=== PATIENT | male | born 1940 | race Caucasian/White ===

== ENCOUNTER → 2018-07-19 | Outpatient (CLI) | payer MEDICARE, OTHER ==
[~2018-07-19] MED LIST: ALLOPURINOL 10100 M1 PO; ASPIR 8181 MG PO; CELEXA20 MG PO; IBUPROFEN 400400 M2 PO; KEPPRA 500 MG500 M2 PO; LASIX 40 MG TAB40 M2 PO; LIPITOR10 MG PO; LISINOPRIL2.5 MG PO; LISINOPRIL20 MG PO; LOTRISONE CREAM15 GM TOP; METFORMIN HCL500 MG PO; NORVASC10 MG PO; NORVASC5 MG PO; PROAIR HFA8.5 GM INH; SERTRALINE HCL50 MG PO; TRUSOPT5 ML OPHTHALMIC; XALATAN2.5 ML OPHTHALMIC
--- NOTE | 2018-07-19 17:19 | 2DMMODE ---
[place] [address] 2 D/M-MODE ECHOCARDIOGRAM Name: KATELYN HERNANDEZ Room: [facility]#: [id number] Admission: 07/19/18 Attend Phys: Jeff Mckeon MD Discharge: Date of : 42 Date of Service: 07/19/18 1719 Report #: [id number] THIS REPORT FOR: //name// APPROVED REPORT Study performed: 07/19/2018 08:03:32 EXAM: Comprehensive 2D, Doppler, and color-flow Echocardiogram Patient Location: Out-Patient Status: routine BSA: 2.09 HR: 78 bpm BP: 92/69 mmHg Other Information Study Quality: Good Indications Murmur Aortic valve replacement 2D Dimensions IVSd: 13.62 (7-11mm) LVOT Diam: 20.36 (18-24mm) LVDd: 48.24 mm PWd: 13.69 (7-11mm) Ascending Ao: 34.48 (22-36mm) LVDs: 34.39 (25-40mm) Aortic Root: 23.25 mm Volumes Left Atrial Volume (Systole) LA ESV Index: 30.60 mL/m2 Aortic Valve AoV Peak Hilario.: 1.95 m/s AO Peak Gr.: 15.17 mmHg LVOT Max P.81 mmHg AO Mean Gr.: 8.51 mmHg LVOT Mean P.05 mmHg LVOT Max V: 1.10 m/s AO V2 VTI: 37.71 cm LVOT Mean V: 0.64 m/s MARYJANE (VTI): 1.89 cm2 LVOT V1 VTI: 21.84 cm Mitral Valve MV Peak Gr.: 13.09 mmHg MV Mean Gr.: 6.39 mmHg E/A Ratio: 1.13 MV Decel. Time: 310.79 [place] [address] 2 D/M-MODE ECHOCARDIOGRAM Name: KATELYN HERNANDEZ Room: [facility]#: [id number] Admission: 07/19/18 Attend Phys: Jeff Mckeon MD Discharge: Date of : 42 Date of Service: 07/19/18 1719 Report #: [id number] MV E Max Hilario.: 1.33 m/s MV PHT: 90.13 ms MVA (PHT): 2.44 cm2 TDI E/Lateral E': 26.60 E/Medial E': 33.25 Medial E' Hilario.: 0.04 m/s Lateral E' Hilario.: 0.05 m/s Pulmonary Valve PV Peak Hilario.: 1.08 m/s PV Peak Gr.: 4.66 mmHg Tricuspid Valve RAP Estimate: 5.00 mmHg TR Peak Gr.: 36.95 mmHg RVSP: 41.95 mmHg PA Pressure: 41.95 mmHg Left Ventricle The left ventricle is normal size. There is normal LV segmental wall motion. Mild concentric left ventricular hypertrophy. Left ventricular systolic function is normal. The left ventricular ejection fraction is within the normal range. LVEF is 50-55%. Grade I - abnormal relaxation pattern. Right Ventricle The right ventricle is normal size. The right ventricular systolic function is normal. Pacemaker lead is present in the right ventricle. Atria The left atrium size is normal. Pacemaker lead is present in the right atrium. Aortic Valve Mild aortic valve sclerosis. Bioprosthetic aortic valve is present. No aortic regurgitation is present. No hemodynamically significant valvular aortic stenosis. Mitral Valve Severe mitral annular calcification. Mitral valve leaflets are thickened. Mild mitral regurgitation. No significant mitral valve stenosis. Tricuspid Valve The tricuspid valve is normal in structure. Mild to moderate [place]icus[place] [address] 2 D/M-MODE ECHOCARDIOGRAM Name: KATELYN HERNANDEZ Room: [facility]#: [id number] Admission: 07/19/18 Attend Phys: Jeff Mckeon MD Discharge: Date of : 42 Date of Service: 07/19/18 1719 Report #: [id number] Pulmonic Valve The pulmonary valve is normal in structure. There is no pulmonic valvular regurgitation. Great Vessels The aortic root is normal in size. IVC is normal in size and collapses >50% with inspiration. Pericardium There is no pericardial effusion. <Conclusion> The left ventricle is normal size. Mild concentric left ventricular hypertrophy. Left ventricular systolic function is normal. The left ventricular ejection fraction is within the normal range. LVEF is 50-55%. Grade I - abnormal relaxation pattern. The right ventricle is normal size. The left atrium size is normal. Mild aortic valve sclerosis. No aortic regurgitation is present. No hemodynamically significant valvular aortic stenosis. Severe mitral annular calcification. Mitral valve leaflets are thickened. Mild mitral regurgitation. No significant mitral valve stenosis. The tricuspid valve is normal in structure. Mild to moderate tricuspid regurgitation. IVC is normal in size and collapses >50% with inspiration. There is no pericardial effusion. There is normal LV segmental wall motion. Bioprosthetic aortic valve is present. <ELECTRONICALLY SIGNED> By: Mati James MD, FACC 07/19/181718 18 18 Mati James MD, FACC /INF
== END ==
LOC: M.CRD 07:31
DX: I08.3 Combined rheumatic disorders of mitral, aortic and tricuspid valves (principal); Z95.0 Presence of cardiac pacemaker

== ENCOUNTER 2019-07-21 09:16 | Emergency (ER) | payer OTHER, MEDICARE ==
[~2019-07-21] VITALS: Ht 170.2 cm; Wt 99.8 kg
[2019-07-21] MEDS ORDERED: DILTIAZEM ER180 M2 PO (09:42)
[2019-07-21] MEDS ORDERED: DORZOLAMIDE 2%10 ML (09:43)
[2019-07-21] MEDS ORDERED: ZETIA10 MG PO (09:43)
[2019-07-21 11:46] VITALS: BP 186/97
== END 2019-07-21 11:52 | disposition home or self-care (01) ==
LOC: M.ERS 09:16
DX: S16.1XXA Strain of muscle, fascia and tendon at neck level, initial encounter (principal); F32.9 Major depressive disorder, single episode, unspecified; Z90.49 Acquired absence of other specified parts of digestive tract; W18.39XA Other fall on same level, initial encounter; Y93.89 Activity, other specified; Y92.89 Other specified places as the place of occurrence of the external cause; Y99.8 Other external cause status

== ENCOUNTER 2020-05-24 14:32 | Inpatient (IN) | payer MEDICARE, OTHER ==
[~2020-05-24] VITALS: Ht 172.7 cm; Wt 98.0 kg
[~2020-05-24 14:32] MED LIST changes: +DILTIAZEM ER180 M2 PO; +DORZOLAMIDE 2%10 ML; +ZETIA10 MG PO
[2020-05-24 14:33] VITALS: BP 162/69
[2020-05-24 15:17] LABS: URINE BILIRUBIN NEGATIVE (Negative); URINE BLOOD NEGATIVE (Negative); URINE CLARITY CLEAR; URINE COLOR YELLOW; URINE GLUCOSE-RANDOM NEGATIVE (Negative); URINE KETONES NEGATIVE (Negative); URINE LEUKOCYTES-REFLEX NEGATIVE (Negative); URINE NITRITE-REFLEX NEGATIVE (Negative); URINE PROTEIN 2+ (Negative); URINE SPECIFIC GRAVITY 1.025 (1.005-1.030); URINE UROBILINOGEN 0.2 E.U./dl (0.2-1.0)
[2020-05-24 15:23] LABS: SQUAMOUS NONE SEEN /LPF (0-3)
[2020-05-24 15:24] LABS: BACTERIA-REFLEX 1-9 Few /HPF (None Seen); CASTS None Seen /LPF (None Seen); CRYSTALS None Seen /LPF (None Seen); MUCUS None Seen strn/LPF (None Seen); URINE RBC None Seen /HPF (0-2); URINE WBC-REFLEX None Seen /HPF (0-5)
[2020-05-24 15:31] LABS: ABSOLUTE LYMPHOCYTES 0.5 thou/uL (0.8-5.3); ABSOLUTE MONOCYTES 0.5 thou/uL (0.0-1.2); ABSOLUTE NEUTROPHILS 4.9 thou/uL (1.6-8.1); BASOPHILS 0.5 %; EOSINOPHILS 0.5 %; HEMATOCRIT 40.6 % (42.0-52.0); HEMOGLOBIN 13.5 gm/dL (14.0-18.0); LYMPHOCYTES 8.8 %; MCH 30.2 pg (26.0-34.0); MCHC 33.2 g/dL (28.0-37.0); MCV 90.7 fL (80.0-100.0); MONOCYTES 8.2 %; MPV 7.1 fl. (7.2-11.1); NUCLEATED RBCS 0 /100WBC; PLATELET COUNT* 214 thou/uL (150-400); RBC 4.47 mil/uL (4.50-6.00); RDW-CV 12.8 % (10.5-14.5); WBC 5.9 thou/uL (4.0-11.0)
[2020-05-24 15:35] LABS: INFLUENZA A ANTIGEN Negative (Negative); INFLUENZA B ANTIGEN Negative (Negative)
[2020-05-24 15:50] LABS: CALCIUM 8.5 mg/dL (8.5-10.1); CREATININE 1.5 mg/dL (0.6-1.3); POTASSIUM 4.2 mmol/L (3.5-5.1)
[2020-05-24 15:56] LABS: ALBUMIN 3.4 g/dL (3.4-5.0); TOTAL BILIRUBIN 0.4 mg/dL (<0.1-1.0); TOTAL PROTEIN 7.6 g/dL (6.4-8.2)
--- NOTE | 2020-05-24 16:47 | EKG ---
[place] [address] ELECTROCARDIOGRAM REPORT Name: KATELYN HERNANDEZ Room: [facility]#: [id number] Admission: 05/24/20 Attend Phys: Discharge: Date of : 42 Date of Service: 05/24/20 1503 Report #: [id number] THIS REPORT FOR: //name// [facility] ED Test Date: 2020-05-24 Test Time: 15:03:46 Pat Name: KATELYN HERNANDEZ Department: Room: Gender: Copy Manager: [facility] : 1940 Requested By: Susana Kauffman Order Number: [id number] Wood MD: Mati James Measurements Intervals [place] Rate: 104 P: 106 DE: 150 QRS: -77 QRSD: 166 T: 85 QT: 392 QTc: 516 Interpretive Statements Ventricular-paced complexes No further analysis attempted due to paced rhythm Baseline wander in lead(s) II,III,aVF Compared to ECG 07/28/2017 11:26:04 Atrial-sensed ventricular-paced complex(es persist Electronically Signed On 05-24-2020 16:47:23 CDT by Mati James [email or web address] <ELECTRONICALLY SIGNED> By: Mati James MD, [facility] 05/24/20 1647 1503 1503 Mati James MD, [facility] /EPI
[2020-05-24 20:49] VITALS: BP 181/78
[2020-05-24 21:30] VITALS: BP 176/80
[2020-05-25] VITALS: BP 157/84
[2020-05-25 04:57] VITALS: BP 148/60
[2020-05-25 09:45] VITALS: BP 156/55
[2020-05-25] MEDS ORDERED: GABAPENTIN100 MG PO (11:17)
[2020-05-25] MEDS ORDERED: KEPPRA XR750 MG PO (11:17)
[2020-05-25 13:07] VITALS: BP 148/59
[2020-05-25 13:34] LABS: CALCIUM 8.8 mg/dL (8.5-10.1); CREATININE 1.4 mg/dL (0.6-1.3); POTASSIUM 4.3 mmol/L (3.5-5.1)
[2020-05-25 17:02] VITALS: BP 138/35
[2020-05-25 20:00] VITALS: BP 139/59
[2020-05-26] VITALS (8 sets, daily range): BP systolic 135–194; BP diastolic 48–89
[2020-05-26 02:50] LABS: URINE BILIRUBIN NEGATIVE (Negative); URINE BLOOD 3+ (Negative); URINE CLARITY CLEAR; URINE COLOR YELLOW; URINE GLUCOSE-RANDOM NEGATIVE (Negative); URINE KETONES NEGATIVE (Negative); URINE LEUKOCYTES-REFLEX NEGATIVE (Negative); URINE NITRITE-REFLEX NEGATIVE (Negative); URINE PROTEIN 2+ (Negative); URINE SPECIFIC GRAVITY 1.025 (1.005-1.030); URINE UROBILINOGEN 0.2 E.U./dl (0.2-1.0)
[2020-05-26 02:58] LABS: HEMATOCRIT 40.2 % (42.0-52.0); HEMOGLOBIN 13.3 gm/dL (14.0-18.0); MCH 29.7 pg (26.0-34.0); MCHC 33.1 g/dL (28.0-37.0); MCV 89.5 fL (80.0-100.0); MPV 7.6 fl. (7.2-11.1); RBC 4.49 mil/uL (4.50-6.00); RDW-CV 12.6 % (10.5-14.5); WBC 15.3 thou/uL (4.0-11.0)
[2020-05-26 03:11] LABS: ALBUMIN 3.1 g/dL (3.4-5.0); CALCIUM 8.2 mg/dL (8.5-10.1); CREATININE 1.6 mg/dL (0.6-1.3); MAGNESIUM 1.4 mg/dL (1.8-2.4); POTASSIUM 3.9 mmol/L (3.5-5.1); TOTAL BILIRUBIN 0.5 mg/dL (<0.1-1.0); TOTAL PROTEIN 7.4 g/dL (6.4-8.2)
[2020-05-26 04:43] LABS: CASTS None Seen /LPF (None Seen); MUCUS 0-3 Light strn/LPF (None Seen); SQUAMOUS NONE SEEN /LPF (0-3); URINE RBC >20 Many /HPF (0-2); URINE WBC-REFLEX 0-5 Rare /HPF (0-5)
[2020-05-26 04:44] LABS: AMORPHOUS URATES Moderate /LPF (None Seen); BACTERIA-REFLEX 1-9 Few /HPF (None Seen)
[2020-05-27] VITALS: BP 167/83
[2020-05-27 04:34] LABS: HEMOGLOBIN 13.9 gm/dL (14.0-18.0); MCH 29.9 pg (26.0-34.0); MCV 90.5 fL (80.0-100.0); MPV 7.7 fl. (7.2-11.1); RBC 4.64 mil/uL (4.50-6.00); RDW-CV 12.7 % (10.5-14.5); WBC 13.1 thou/uL (4.0-11.0)
[2020-05-27 05:06] LABS: ALBUMIN 2.8 g/dL (3.4-5.0); CALCIUM 8.4 mg/dL (8.5-10.1); CREATININE 1.6 mg/dL (0.6-1.3); MAGNESIUM 1.7 mg/dL (1.8-2.4); POTASSIUM 3.9 mmol/L (3.5-5.1); TOTAL BILIRUBIN 0.4 mg/dL (<0.1-1.0); TOTAL PROTEIN 7.3 g/dL (6.4-8.2)
[2020-05-27 09:30] VITALS: BP 170/70
[2020-05-27 12:00] VITALS: BP 168/78
[2020-05-27 16:00] VITALS: BP 159/80
[2020-05-27 20:00] VITALS: BP 136/66
[2020-05-28] VITALS: BP 130/58
[2020-05-28 04:00] VITALS: BP 132/68
[2020-05-28 05:14] LABS: HEMATOCRIT 39.3 % (42.0-52.0); HEMOGLOBIN 12.8 gm/dL (14.0-18.0); MCH 29.5 pg (26.0-34.0); MCHC 32.6 g/dL (28.0-37.0); MCV 90.5 fL (80.0-100.0); MPV 8.2 fl. (7.2-11.1); RBC 4.34 mil/uL (4.50-6.00); RDW-CV 12.7 % (10.5-14.5)
[2020-05-28 05:36] LABS: ALBUMIN 2.3 g/dL (3.4-5.0); CALCIUM 8.2 mg/dL (8.5-10.1); CREATININE 1.6 mg/dL (0.6-1.3); MAGNESIUM 1.8 mg/dL (1.8-2.4); POTASSIUM 3.9 mmol/L (3.5-5.1); TOTAL BILIRUBIN 0.4 mg/dL (<0.1-1.0); TOTAL PROTEIN 6.4 g/dL (6.4-8.2)
[2020-05-28 09:00] VITALS: BP 160/68
[2020-05-28 12:00] VITALS: BP 143/64
[2020-05-28 16:00] VITALS: BP 146/72
[2020-05-29 01:00] VITALS: BP 171/79
[2020-05-29 04:30] VITALS: BP 145/64
[2020-05-29 08:00] VITALS: BP 145/64
[2020-05-29 12:00] VITALS: BP 201/80
--- NOTE | 2020-05-29 13:29 | 2DMMODE ---
[place] [address] 2 D/M-MODE ECHOCARDIOGRAM Name: KATELYN HERNANDEZ Room: [address] [place] .R.#: [id number] Admission: 05/24/20 Attend Phys: Delia Campbell, Discharge: Date of : 42 Date of Service: 05/29/20 1329 Report #: [id number] THIS REPORT FOR: cc: Pedrito Montanez MD, Bruce D. MD Holkins,Mati Hurd MD [facility] ~ APPROVED REPORT Study performed: 05/29/2020 10:03:01 EXAM: Comprehensive 2D, Doppler, and color-flow Echocardiogram Patient Location: Bedside BSA: 2.11 HR: 74 bpm BP: 167/83 mmHg Other Information Study Quality: Adequate Indications Congestive Heart Failure Covid Positive 2D Dimensions IVSd: 17.38 (7-11mm) LVOT Diam: 16.48 (18-24mm) LVDd: 54.31 mm PWd: 13.32 (7-11mm) Ascending Ao: 31.35 (22-36mm) LVDs: 36.80 (25-40mm) Aortic Root: 33.67 mm Volumes Left Atrial Volume (Systole) LA ESV Index: 79.40 mL/m2 Aortic Valve AoV Peak Hilario.: 1.87 m/s AO Peak Gr.: 13.95 mmHg LVOT Max P.49 mmHg AO Mean Gr.: 8.01 mmHg LVOT Mean P.33 mmHg LVOT Max V: 1.27 m/s AO V2 VTI: 35.13 cm LVOT Mean V: 0.84 m/s MARYJANE (VTI): 1.52 cm2 LVOT V1 VTI: 25.09 [place] [address] 2 D/M-MODE ECHOCARDIOGRAM Name: KATELYN HERNANDEZ Room: [address] [place] ..#: [id number] Admission: 05/24/20 Attend Phys: Delia Campbell, Discharge: Date of : 42 Date of Service: 05/29/20 1329 Report #: [id number] MV Mean Gr.: 4.90 mmHg E/A Ratio: 1.39 MV Decel. Time: 277.64 ms MV E Max Hilario.: 1.70 m/s MV PHT: 80.52 ms MVA (PHT): 2.73 cm2 Pulmonary Valve PV Peak Hilario.: 1.01 m/s PV Peak Gr.: 4.07 mmHg Tricuspid Valve RAP Estimate: 5.00 mmHg TR Peak Gr.: 36.75 mmHg RVSP: 41.75 mmHg PA Pressure: 41.75 mmHg Left Ventricle The left ventricle is normal size. There is normal LV segmental wall motion. Mild concentric left ventricular hypertrophy. Left ventricular systolic function is normal. The left ventricular ejection fraction is within the normal range. LVEF is 60-65%. The left ventricular diastolic function is normal. Right Ventricle The right ventricle is normal size. The right ventricular systolic function is normal. Pacemaker lead is present in the right ventricle. Atria Left atrium is moderately dilated. The right atrium size is normal. Aortic Valve Mild aortic valve sclerosis. Bioprosthetic aortic valve is present. No aortic regurgitation is present. No hemodynamically significant valvular aortic stenosis. Mitral Valve Severe mitral annular calcification. Trace mitral regurgitation. No evidence of mitral valve stenosis. Tricuspid Valve The tricuspid valve is normal in structure. Trace tricuspid regurgitation. Pulmonic Valve The pulmonary valve is normal in structure. There is no pulmonic [place] [address] 2 D/M-MODE ECHOCARDIOGRAM Name: KATELYN HERNANDEZ Room: [address]#: [id number] Admission: 05/24/20 Attend Phys: Delia Campbell, Discharge: Date of : 42 Date of Service: 05/29/20 1329 Report #: [id number] Great Vessels The aortic root is normal in size. Aortic arch is not visualized. IVC is notl visualized. Pericardium There is no pericardial effusion. <Conclusion> The left ventricle is normal size. Mild concentric left ventricular hypertrophy. Left ventricular systolic function is normal. The left ventricular ejection fraction is within the normal range. LVEF is 60-65%. The left ventricular diastolic function is normal. The right ventricle is normal size. Left atrium is moderately dilated. Mild aortic valve sclerosis. No aortic regurgitation is present. No hemodynamically significant valvular aortic stenosis. Severe mitral annular calcification. Trace mitral regurgitation. No evidence of mitral valve stenosis. The tricuspid valve is normal in structure. There is no pericardial effusion. There is normal LV segmental wall motion. Bioprosthetic aortic valve is present. <ELECTRONICALLY SIGNED> By: Mati James MD, FACC 05/29/20 1329 1329 1329 Mati James MD, FACC /INF
[2020-05-29 16:00] VITALS: BP 125/76; BP 187/85
[2020-05-29 20:00] VITALS: BP 159/73
[2020-05-30] VITALS: BP 150/77
[2020-05-30 04:00] VITALS: BP 145/68
[2020-05-30 05:26] LABS: HEMATOCRIT 39.1 % (42.0-52.0); HEMOGLOBIN 12.6 gm/dL (14.0-18.0); MCH 29.2 pg (26.0-34.0); MCHC 32.3 g/dL (28.0-37.0); MCV 90.2 fL (80.0-100.0); RBC 4.33 mil/uL (4.50-6.00); RDW-CV 12.6 % (10.5-14.5)
[2020-05-30 05:47] LABS: ALBUMIN 2.4 g/dL (3.4-5.0); CALCIUM 8.4 mg/dL (8.5-10.1); CREATININE 1.4 mg/dL (0.6-1.3); MAGNESIUM 1.9 mg/dL (1.8-2.4); TOTAL BILIRUBIN 0.4 mg/dL (<0.1-1.0); TOTAL PROTEIN 6.1 g/dL (6.4-8.2)
[2020-05-30 08:00] VITALS: BP 167/70
[2020-05-30] MEDS ORDERED: VIBRAMYCIN 100100 M2 PO (10:06)
[2020-05-30] MEDS ORDERED: PREDNISONE 10 M10 MG PO (10:06)
[2020-05-30 12:00] VITALS: BP 152/68
[2020-05-30 14:03] VITALS: BP 152/68
== END 2020-05-30 16:00 | disposition home health service (06) | DRG 177 ==
LOC: M.ERS 14:32 → M.2W 16:50 → M.TBA-ER 16:50 → M.2W 21:40
PROVIDERS: Internal Medicine; Physician Assistant; ADMIT Internal Medicine; ATTEND Internal Medicine
PROC: XW033E5 Introduction of Remdesivir Anti-infective into Peripheral Vein, Percutaneous Approach, New Technology Group 5 (ICD-10-PCS; principal; 2020-05-26)
DX: U07.1 COVID-19 (principal); J96.01 Acute respiratory failure with hypoxia; I50.33 Acute on chronic diastolic (congestive) heart failure; G92 Toxic encephalopathy; R65.11 Systemic inflammatory response syndrome (SIRS) of non-infectious origin with acute organ dysfunction; F32.9 Major depressive disorder, single episode, unspecified; E78.5 Hyperlipidemia, unspecified; I25.10 Atherosclerotic heart disease of native coronary artery without angina pectoris; F03.90 Unspecified dementia, unspecified severity, without behavioral disturbance, psychotic disturbance, mood disturbance, and anxiety; J40 Bronchitis, not specified as acute or chronic; T17.908A Unspecified foreign body in respiratory tract, part unspecified causing other injury, initial encounter; G62.9 Polyneuropathy, unspecified; I35.0 Nonrheumatic aortic (valve) stenosis; I10 Essential (primary) hypertension; Z89.021 Acquired absence of right finger(s); Z90.49 Acquired absence of other specified parts of digestive tract; Z98.52 Vasectomy status; Z95.1 Presence of aortocoronary bypass graft; Z95.2 Presence of prosthetic heart valve; X58.XXXA Exposure to other specified factors, initial encounter; Y93.89 Activity, other specified; Y92.89 Other specified places as the place of occurrence of the external cause; Y99.8 Other external cause status

== ENCOUNTER 2020-12-29 15:01 | Emergency (ER) | payer MEDICARE, OTHER ==
[~2020-12-29] VITALS: Ht 170.2 cm; Wt 109.3 kg
[~2020-12-29 15:01] MED LIST changes: +GABAPENTIN100 MG PO; +KEPPRA XR750 MG PO; +PREDNISONE 10 M10 MG PO; +VIBRAMYCIN 100100 M2 PO
[2020-12-29] MEDS ORDERED: BUSPIRONE HCL5 MG PO (15:18)
[2020-12-29 15:38] LABS: ABSOLUTE BASOPHILS 0.1 thou/uL (0.0-0.2); ABSOLUTE EOSINOPHILS 0.3 thou/uL (0.0-0.7); ABSOLUTE LYMPHOCYTES 1.1 thou/uL (0.8-5.3); ABSOLUTE MONOCYTES 0.6 thou/uL (0.0-1.2); ABSOLUTE NEUTROPHILS 5.9 thou/uL (1.6-8.1); BASOPHILS 0.8 %; EOSINOPHILS 3.3 %; HEMATOCRIT 40.1 % (42.0-52.0); HEMOGLOBIN 13.4 gm/dL (14.0-18.0); LYMPHOCYTES 14.3 %; MCH 30.7 pg (26.0-34.0); MCHC 33.5 g/dL (28.0-37.0); MCV 91.7 fL (80.0-100.0); MONOCYTES 6.9 %; MPV 7.3 fl. (7.2-11.1); NUCLEATED RBCS 0 /100WBC; PLATELET COUNT* 294 thou/uL (150-400); POLYS 74.7 %; RBC 4.37 mil/uL (4.50-6.00); RDW-CV 13.1 % (10.5-14.5); WBC 7.9 thou/uL (4.0-11.0)
[2020-12-29 15:46] LABS: CALCIUM 9.2 mg/dL (8.5-10.1); CREATININE 1.5 mg/dL (0.6-1.3); POTASSIUM 4.4 mmol/L (3.5-5.1)
[2020-12-29 15:58] LABS: ALBUMIN 3.4 g/dL (3.4-5.0); TOTAL BILIRUBIN 0.4 mg/dL (<0.1-1.0); TOTAL PROTEIN 7.3 g/dL (6.4-8.2)
[2020-12-29 18:18] VITALS: BP 179/80
--- NOTE | 2020-12-30 10:56 | EKG ---
[place] [address] ELECTROCARDIOGRAM REPORT Name: MAGDALENO HERNANDEZLUCIA Neel Room: [facility]#: [id number] Admission: 12/29/20 Attend Phys: Discharge: 12/29/20 Date of : 42 Date of Service: 12/29/20 1511 Report #: [id number] THIS REPORT FOR: //name// [facility] ED Test Date: 2020-12-29 Test Time: 15:11:05 Pat Name: KATELYN HERNANDEZ Department: Room: Gender: Carton Stamper: : 1940 Requested By: Lawrence Hooker Order Number: [id number] MD: Jeff Mckeon Measurements Intervals [place] Rate: 76 P: 58 CT: 171 QRS: -80 QRSD: 166 T: 90 QT: 431 QTc: 485 Interpretive Statements Atrial-sensed ventricular-paced rhythm No further analysis attempted due to paced rhythm Baseline wander in lead(s) V1,V4 Compared to ECG 05/24/2020 15:03:46 No significant changes Electronically Signed On 12-30-2020 10:55:58 CDT by Jeff Mckeon [email or web address] <ELECTRONICALLY SIGNED> By: Jeff Mckeon MD, [facility] 12/30/20 1055 151 151 Jeff Mckeon MD, [facility] /EPI
== END 2020-12-29 18:20 | disposition home or self-care (01) ==
LOC: M.ERS 15:01
PROVIDERS: Emergency Medicine Emergency Medical Services
DX: R22.43 Localized swelling, mass and lump, lower limb, bilateral (principal); E78.5 Hyperlipidemia, unspecified; I11.0 Hypertensive heart disease with heart failure; I50.9 Heart failure, unspecified; I25.10 Atherosclerotic heart disease of native coronary artery without angina pectoris; Z90.49 Acquired absence of other specified parts of digestive tract

== ENCOUNTER 2021-03-06 07:33 | Emergency (ER) | payer MEDICARE, OTHER ==
[~2021-03-06] VITALS: Ht 170.2 cm; Wt 106.6 kg
[~2021-03-06 07:33] MED LIST changes: +BUSPIRONE HCL5 MG PO
[2021-03-06 08:11] LABS: ABSOLUTE EOSINOPHILS 0.4 thou/uL (0.0-0.7); ABSOLUTE LYMPHOCYTES 1.1 thou/uL (0.8-5.3); ABSOLUTE MONOCYTES 0.6 thou/uL (0.0-1.2); ABSOLUTE NEUTROPHILS 5.2 thou/uL (1.6-8.1); BASOPHILS 0.6 %; EOSINOPHILS 4.9 %; HEMATOCRIT 38.6 % (42.0-52.0); HEMOGLOBIN 12.9 gm/dL (14.0-18.0); LYMPHOCYTES 14.9 %; MCH 30.4 pg (26.0-34.0); MCHC 33.4 g/dL (28.0-37.0); MCV 90.9 fL (80.0-100.0); MONOCYTES 7.7 %; MPV 7.4 fl. (7.2-11.1); NUCLEATED RBCS 0 /100WBC; PLATELET COUNT* 282 thou/uL (150-400); POLYS 71.9 %; RBC 4.25 mil/uL (4.50-6.00); RDW-CV 12.4 % (10.5-14.5); WBC 7.2 thou/uL (4.0-11.0)
[2021-03-06 08:15] LABS: CALCIUM 9.1 mg/dL (8.5-10.1); CREATININE 1.6 mg/dL (0.6-1.3); POTASSIUM 4.6 mmol/L (3.5-5.1)
[2021-03-06 08:19] LABS: ALBUMIN 3.6 g/dL (3.4-5.0); TOTAL BILIRUBIN 0.7 mg/dL (<0.1-1.0); TOTAL PROTEIN 7.2 g/dL (6.4-8.2)
[2021-03-06] MEDS ORDERED: MOTION SICKNESS25 MG PO (10:06)
[2021-03-06 10:19] VITALS: BP 157/73
--- NOTE | 2021-03-06 11:45 | EKG ---
[place] [address] ELECTROCARDIOGRAM REPORT Name: MAGDALENO HERNANDEZLUCIA Neel Room: [facility]#: [id number] Admission: 03/06/21 Attend Phys: Discharge: 03/06/21 Date of : 42 Date of Service: 03/06/21 0745 Report #: [id number] THIS REPORT FOR: //name// [facility] ED Test Date: 2021-03-06 Test Time: 07:45:51 Pat Name: KATELYN HERNANDEZ Department: Room: Gender: Hedis Abstractor: YOHANA : 1940 Requested By: Lawrence Hooker Order Number: [id number] MD: Terry Queen Measurements Intervals [place] Rate: 85 P: 85 VT: 164 QRS: -82 QRSD: 165 T: 83 QT: 438 QTc: 521 Interpretive Statements Ventricular-paced rhythm No further analysis attempted due to paced rhythm Baseline wander in lead(s) V4,V5 Compared to ECG 12/29/2020 15:11:05 Atrial-sensed ventricular-paced complex(es) or rhythm no longer present Electronically Signed On 03-06-2021 11:44:46 CDT by Terry Queen [email or web address] <ELECTRONICALLY SIGNED> By: Geneva Queen MD, [facility] 03/06/21 1144 0745 0745 Geneva Queen MD, [facility] /EPI
== END 2021-03-06 10:29 | disposition home or self-care (01) ==
LOC: M.ERS 07:33
PROVIDERS: Emergency Medicine Emergency Medical Services
DX: H81.10 Benign paroxysmal vertigo, unspecified ear (principal); Z20.822 Contact with and (suspected) exposure to COVID-19; I11.0 Hypertensive heart disease with heart failure; I50.9 Heart failure, unspecified; E78.5 Hyperlipidemia, unspecified; Z90.89 Acquired absence of other organs; Z79.899 Other long term (current) drug therapy

== ENCOUNTER → 2021-04-30 | Outpatient (CLI) | payer MEDICARE, OTHER ==
[~2021-04-30] MED LIST changes: +CARVEDILOL6.25 M1 PO; +KLOR-CON M2020 MEQ PO; +LIPITOR 20 MG T20 M1 PO; +MOTION SICKNESS25 MG PO; +NORCO5 PO
== END ==
LOC: M.CT 07:16
PROVIDERS: ATTEND Internal Medicine Pulmonary Disease
DX: J98.4 Other disorders of lung (principal); I25.10 Atherosclerotic heart disease of native coronary artery without angina pectoris; M19.011 Primary osteoarthritis, right shoulder; M19.012 Primary osteoarthritis, left shoulder; R09.89 Other specified symptoms and signs involving the circulatory and respiratory systems; Z86.16 Personal history of COVID-19; Z95.0 Presence of cardiac pacemaker

== ENCOUNTER 2021-05-01 10:16 | Emergency (ER) | payer MEDICARE, OTHER ==
[~2021-05-01] VITALS: Ht 172.7 cm; Wt 108.9 kg
[~2021-05-01 10:16] MED LIST changes: -CARVEDILOL6.25 M1 PO; -KLOR-CON M2020 MEQ PO; -LIPITOR 20 MG T20 M1 PO; -NORCO5 PO
[2021-05-01] MEDS ORDERED: CARVEDILOL6.25 M1 PO (10:34)
[2021-05-01] MEDS ORDERED: LIPITOR 20 MG T20 M1 PO (10:35)
[2021-05-01] MEDS ORDERED: KLOR-CON M2020 MEQ PO (10:37)
[2021-05-01] MEDS ORDERED: NORCO5 PO (12:06)
[2021-05-01 12:19] VITALS: BP 149/71
== END 2021-05-01 12:20 | disposition home or self-care (01) ==
LOC: M.ERS 10:16
DX: S51.011A Laceration without foreign body of right elbow, initial encounter (principal); S80.01XA Contusion of right knee, initial encounter; S50.01XA Contusion of right elbow, initial encounter; R07.89 Other chest pain; I11.0 Hypertensive heart disease with heart failure; I50.9 Heart failure, unspecified; Z90.89 Acquired absence of other organs; Z95.1 Presence of aortocoronary bypass graft; W18.39XA Other fall on same level, initial encounter; Y93.89 Activity, other specified; Y92.89 Other specified places as the place of occurrence of the external cause; Y99.8 Other external cause status

== ENCOUNTER → 2021-05-12 | Outpatient (CLI) | payer MEDICARE, OTHER ==
[~2021-05-12] MED LIST changes: +CARVEDILOL6.25 M1 PO; +KLOR-CON M2020 MEQ PO; +LIPITOR 20 MG T20 M1 PO; +NORCO5 PO
== END ==
LOC: M.ULTRA 08:24 → EDSEX 08:24 → M.ULTRA 09:00
PROVIDERS: ATTEND Family Medicine
DX: R60.0 Localized edema (principal)

== ENCOUNTER → 2021-05-14 | Outpatient (CLI) | payer MEDICARE, OTHER ==
[2021-05-14 11:38] LABS: CALCIUM 9.2 mg/dL (8.5-10.1); CREATININE 1.8 mg/dL (0.6-1.3); POTASSIUM 4.5 mmol/L (3.5-5.1)
== END ==
LOC: M.LAB 11:00
PROVIDERS: ATTEND Nurse Practitioner
DX: I50.32 Chronic diastolic (congestive) heart failure (principal)